=== PATIENT | male | born 2000 | race Two or more races ===

== ENCOUNTER 2021-08-02 10:57 | Emergency (ER) | payer OTHER ==
[~2021-08-02] VITALS: Ht 175.3 cm; Wt 74.8 kg
[2021-08-02 11:20] VITALS: BP 132/89
== END 2021-08-02 13:42 | disposition left against medical advice (07) ==
LOC: ER 10:57
DX: S61.412A Laceration without foreign body of left hand, initial encounter (principal); Z53.21 Procedure and treatment not carried out due to patient leaving prior to being seen by health care provider; W26.8XXA Contact with other sharp object(s), not elsewhere classified, initial encounter; Y93.89 Activity, other specified; Y92.89 Other specified places as the place of occurrence of the external cause; Y99.8 Other external cause status